=== PATIENT | female | born 1985 | race Caucasian/White ===

== ENCOUNTER 2023-01-27 09:52 | Emergency (ER) | payer OTHER ==
[~2023-01-27] VITALS: Ht 157.5 cm; Wt 81.0 kg
[2023-01-27] MEDS ORDERED: AMOX/K CLAV875 M1 PO (10:09)
[2023-01-27] MEDS ORDERED: FLOXIN OTIC0.3 % AS (10:09)
[2023-01-27] MEDS ORDERED: TRAMADOL HYDROC50 M1 PO (10:12)
[2023-01-27 10:14] VITALS: BP 162/105
[2023-01-27 10:18] VITALS: BP 162/105
== END 2023-01-27 10:20 | disposition home or self-care (01) ==
LOC: ED 09:52
DX: H66.92 Otitis media, unspecified, left ear (principal); H60.92 Unspecified otitis externa, left ear

== ENCOUNTER 2023-05-14 21:39 | Emergency (ER) | payer OTHER ==
[~2023-05-14] VITALS: Ht 157.5 cm; Wt 74.0 kg
[~2023-05-14 21:39] MED LIST: AMOX/K CLAV875 M1 PO; FLOXIN OTIC0.3 % AS; TRAMADOL HYDROC50 M1 PO
[2023-05-15 00:48] LABS: URINE BILIRUBIN - DIPSTICK NEGATIVE (NEGATIVE); URINE COLOR YELLOW; URINE GLUCOSE - DIPSTICK NEGATIVE (NEGATIVE); URINE KETONE Negative (NEGATIVE)
[2023-05-15 00:49] LABS: URINE BLOOD DIPSTICK NEGATIVE (NEGATIVE); URINE LEUK ESTERASE NEGATIVE (NEGATIVE); URINE NITRITE - DIPSTICK NEGATIVE (Negative); URINE PH 5.5 (4.5-8.0); URINE PROTEIN - DIPSTICK 100 mg/dL (NEG-TRACE); URINE SPECIFIC GRAVITY >=1.030; URINE UROBILINOGEN - DIPSTICK 0.2 E.U./dL (0.2)
[2023-05-15 00:52] LABS: URINE BACTERIA FEW hpf; URINE EPITHELIAL CELLS FEW EPI/hpf (0-FEW); URINE MUCUS MODERATE hpf (NONE-FEW); URINE WBC 0-2 WBC/hpf (0-5)
[2023-05-15] MEDS ORDERED: PAXLOVID PO (01:23)
[2023-05-15] MEDS ORDERED: ZPAK PO (01:23)
[2023-05-15 01:37] VITALS: BP 152/107
== END 2023-05-15 01:40 | disposition home or self-care (01) ==
LOC: ED 21:39
PROVIDERS: Emergency Medicine
DX: U07.1 COVID-19 (principal); J06.9 Acute upper respiratory infection, unspecified

== ENCOUNTER 2024-09-30 09:05 | Emergency (ER) | payer SELFPAY ==
[~2024-09-30] VITALS: Ht 157.5 cm; Wt 72.6 kg
[~2024-09-30 09:05] MED LIST changes: +PAXLOVID PO; +ZPAK PO
[2024-09-30] MEDS ORDERED: KETOROLAC TROMETHAMINE 30 MG/ML SDV IM ONE (11:00)
[2024-09-30] MEDS ORDERED: ACETAMINOPHEN 500 MG TAB PO ONE (11:05)
[2024-09-30] MEDS ORDERED: amLODIPine BESYLATE 5 MG/TAB PO ONE (11:30)
[2024-09-30 12:11] VITALS: BP 153/98
== END 2024-09-30 12:12 | disposition home or self-care (01) | DRG 156 ==
LOC: ED 09:05
DX: H60.92 Unspecified otitis externa, left ear (principal); I10 Essential (primary) hypertension; E78.5 Hyperlipidemia, unspecified